=== PATIENT | male | born 1990 | race Caucasian/White ===

== ENCOUNTER 2020-06-05 12:10 | Emergency (ER) | payer SELFPAY ==
[~2020-06-05] VITALS: Ht 182.9 cm; Wt 85.8 kg
[2020-06-05] MEDS ORDERED: HYDROcodone/APAP 5/325MG 1 TAB TABLET PO ONE (13:15)
[2020-06-05] MEDS ORDERED: ERYTHROMYCIN 0.5% OPHTH OINTMENT 1GM TUBE. OS ONE (13:15)
[2020-06-05] MEDS ORDERED: HYDR-3165 PO (13:23)
[2020-06-05] MEDS ORDERED: ERYT1OIN6 OP (13:23)
--- NOTE | 2020-06-05 13:23 | PHYS DOC ---
Past History Past Medical History: Anxiety Past Surgical History: Other Additional Past Surgical Histo: left thumb; bilat eye surgeries Alcohol Use: Occasionally General Adult EDM: Chief Complaint: EYE PROBLEMS HPI: HPI: Patient is a [age] year old [sex] who presents with [] Review of Systems: Review of Systems: Constitutional: Denies fever or chills Eyes: Denies change in visual acuity HENT: Denies nasal congestion or sore throat Respiratory: Denies cough or shortness of breath Cardiovascular: Denies chest pain or edema GI: Denies abdominal pain, nausea, vomiting, bloody stools or diarrhea : Denies dysuria Musculoskeletal: Denies back pain or joint pain Integument: Denies rash Neurologic: Denies headache, focal weakness or sensory changes Endocrine: Denies polyuria or polydipsia Lymphatic: Denies swollen glands Psychiatric: Denies depression or anxiety Heart Score: Risk Factors: Risk Factors: DM, Current or recent (<one month) smoker, HTN, HLP, family history of CAD, obesity. Risk Scores: Score 0 - 3: 2.5% MACE over next 6 weeks - Discharge Home Score 4 - 6: 20.3% MACE over next 6 weeks - Admit for Clinical Observation Score 7 - 10: 72.7% MACE over next 6 weeks - Early Invasive Strategies Current Medications: Current Meds: Current Medications Medications (Trade) Dose Ordered Sig/Kamryn Start Time Stop Time Status Last Admin Dose Admin Acetaminophen/ Hydrocodone Bitart (Lortab 5/325) 1 tab 1X ONCE 06/05/20 13:15 06/05/20 13:16 UNV Erythromycin (Romycin) 0.25 inch 1X ONCE 06/05/20 13:15 06/05/20 13:16 UNV Allergies: Allergies: Allergies Coded Allergies Type Severity Reaction Last Updated Verified Sulfa (Sulfonamide Antibiotics) Allergy Unknown 06/05/20 Yes Physical Exam: PE: Constitutional: Well developed, well nourished, no acute distress, non-toxic appearance. [] HENT: Normocephalic, atraumatic, bilateral external ears normal, oropharynx m oist, no oral exudates, nose normal. [] Eyes: PERRLA, EOMI, conjunctiva normal, no discharge. [] Neck: Normal range of motion, no tenderness, supple, no stridor. [] Cardiovascular:Heart rate regular rhythm, no murmur [] Lungs & Thorax: Bilateral breath sounds clear to auscultation [] Abdomen: Bowel sounds normal, soft, no tenderness, no masses, no pulsatile masses. [] Skin: Warm, dry, no erythema, no rash. [] Back: No tenderness, no CVA tenderness. [] Extremities: No tenderness, no cyanosis, no clubbing, ROM intact, no edema. [] Neurologic: Alert and oriented X 3, normal motor function, normal sensory function, no focal deficits noted. [] Psychologic: Affect normal, judgement normal, mood normal. [] Current Patient Data: Vital Signs: Vital Signs Date Time Temp Pulse Resp B/P (MAP) Pulse Ox O2 Delivery O2 Flow Rate FiO2 06/05/20 12:10 98.8 75 18 133/82 (99) 96 Room Air EKG: EKG: [] Radiology/Procedures: Radiology/Procedures: [] Course & Med Decision Making: Course & Med Decision Making Pertinent Labs and Imaging studies reviewed. (See chart for details) [] Dragon Disclaimer: Dragon Disclaimer: This electronic medical record was generated, in whole or in part, using a voice recognition dictation system. Departure Departure: Impression: Primary Impression: Left eye pain Disposition: HOME/RESIDENCE PRIOR TO ADM Condition: STABLE Referrals: BRIDGETTE KENDALL APRN (PCP) TANIA LANDEROS DO Patient Instructions: Erythromycin eye ointment Additional Instructions: Please follow closely with eye doctor. Take pain medication as needed. Use empiric antibiotic ophthalmic ointment as prescribed. Scripts Erythromycin Base (Erythromycin) 1 Gm Oint...g. 0.25 GM OP QID for Eye redness/pain for 7 Days, #1 TUBE Prov: JOSELO FREITAS DO 06/05/20 Hydrocodone Bit/Acetaminophen (NORCO 5-325 TABLET) 1 Each Tablet 0.5-1 TAB PO Q6HRS PRN for PAIN, #10 TAB Prov: JOSELO FREITAS DO 06/05/20 Justification of Admission: Justification of Admission: Justification of Admission Dx: N/A JOSELO FREITAS DO Jun 05, 2020 13:23
[2020-06-05 13:36] VITALS: BP 139/91
== END 2020-06-05 13:36 | disposition home or self-care (01) ==
LOC: ER 12:10
DX: H57.12 Ocular pain, left eye (principal); F41.9 Anxiety disorder, unspecified; Z88.2 Allergy status to sulfonamides
CPT/HCPCS: 99283